=== PATIENT | female | born 2000 | race Caucasian/White ===

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

== ENCOUNTER 2018-02-27 23:10 | Emergency (ER) | payer OTHER, SELFPAY ==
[2018-02-28 00:48] LABS: Absolute Monocytes 0.4 K/uL (0.1-1.3); Absolute Neutrophil 4.7 K/uL (1.8-8.0); Basophils % 0.4 % (0-1.3); Eosinophils % 0.6 % (0-4.4); Hematocrit 38.8 % (36.0-45.0); Lymphocytes % 27.8 % (15.3-44.8); MPV 9.9 fL (7.6-11.3); Monocytes % 5.7 % (3.3-12.3); RBC Red Blood Cell Count 4.46 M/uL (3.86-4.86)
[2018-02-28 01:00] LABS: ALT/SGPT 21 U/L (12-78); AST/SGOT 14 U/L (15-37); Albumin 3.5 g/dL (3.4-5.0); Alkaline Phosphatase 65 U/L (45-117); BUN Blood Urea Nitrogen 12 mg/dL (7-18); Bicarbonate 25 mmol/L (21-32); Bilirubin Direct 0.1 mg/dL (0-0.2); Bilirubin Total 0.4 mg/dL (0.2-1.0); Glucose Level 87 mg/dL (74-106); Lipase 86 U/L (73-393); Potassium 3.5 mmol/L (3.5-5.1); Protein, Total 7.5 g/dL (6.4-8.2); Sodium Level 140 mmol/L (136-145)
[2018-02-28] MEDS ORDERED: DIPHENHYDRAMINE 50 MG/ML VIAL ONE (01:32)
[2018-02-28] MEDS ORDERED: NA CHLORIDE 0.9% 500 ML ONE (01:32)
[2018-02-28] MEDS ORDERED: METOCLOPRAMIDE 10 MG/2mL INJ ONE (01:32)
--- NOTE | 2018-02-28 02:08 | EDPHYS ---
Physician Documentation [facility] Name: Alesha Lopez Age: 17 yrs Sex: Female : 2000 Arrival Date: 02/27/2018 Time: 23:12 Bed 15 Private MD: ED Physician Jeanmarie Chavez HPI: 02/28 01:14 This 17 yrs old Female presents to ER via Ambulatory with complaints of jr8 Abdominal Pain, Headache, Nausea/Vomiting. 01:14 The patient presents with abdominal pain in the upper abdomen. Onset: The jr8 symptoms/episode began/occurred acutely, today. The symptoms do not radiate. Associated signs and symptoms: Pertinent positives: headache, nausea. The symptoms are described as crampy. Modifying factors: The symptoms are alleviated by nothing, the symptoms are aggravated by nothing. Severity of pain: At its worst the pain was moderate in the emergency department the pain has improved mildly. The patient has not experienced similar symptoms in the past. The patient has not recently seen a physician. 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 - Social history:: Smoking status: Patient/guardian denies using tobacco. - Ebola Screening: : No symptoms or risks identified at this time. ROS: 02/28 01:15 Eyes: Negative for injury, pain, redness, and discharge, ENT: Negative for injury, jr8 pain, and discharge, Neck: Negative for injury, pain, and swelling, Cardiovascular: Negative for chest pain, palpitations, and edema, Respiratory: Negative for shortness of breath, cough, wheezing, and pleuritic chest pain, Back: Negative for injury and pain, MS/Extremity: Negative for injury and deformity, Skin: Negative for injury, rash, and discoloration. Abdomen/GI: Positive for abdominal pain, nausea, Negative for vomiting, diarrhea, constipation, abdominal distension. Neuro: Positive for headache, Negative for altered mental status, dizziness, gait disturbance, hearing loss, loss of consciousness, numbness, seizure activity, speech changes, syncope, near syncope, tingling, tinnitus, tremor, visual changes, weakness. Exam: 01:16 Eyes: Pupils equal round and reactive to light, extra-ocular motions intact. Lids and jr8 lashes normal. Conjunctiva and sclera are non-icteric and not injected. Cornea within normal limits. Periorbital areas with no swelling, redness, or edema. ENT: Nares patent. No nasal discharge, no septal abnormalities noted. Tympanic membranes are normal and external auditory canals are clear. Oropharynx with no redness, swelling, or masses, exudates, or evidence of obstruction, uvula midline. Mucous membranes moist. Neck: Trachea midline, no thyromegaly or masses palpated, and no cervical lymphadenopathy. Supple, full range of motion without nuchal rigidity, or vertebral point tenderness. No Meningismus. Cardiovascular: Regular rate and rhythm with a normal S1 and S2. No gallops, murmurs, or rubs. Normal PMI, no JVD. No pulse deficits. Respiratory: Lungs have equal breath sounds bilaterally, clear to auscultation and percussion. No rales, rhonchi or wheezes noted. No increased work of breathing, no retractions or nasal flaring. Back: No spinal tenderness. No costovertebral tenderness. Full range of motion. Skin: Warm, dry with normal turgor. Normal color with no rashes, no lesions, and no evidence of cellulitis. MS/ Extremity: Pulses equal, no cyanosis. Neurovascular intact. Full, normal range of motion. Neuro: Awake and alert, GCS 15, oriented to person, place, time, and situation. Cranial nerves II-XII grossly intact. Motor strength 5/5 in all extremities. Sensory grossly intact. Cerebellar exam normal. Normal gait. :16 Abdomen/GI: Inspection: abdomen appears normal, Bowel sounds: active, all quadrants, Palpation: soft, in all quadrants, mild abdominal tenderness, in the epigastric area, mass, is not appreciated, rebound tenderness, is not appreciated, voluntary guarding, is not appreciated, involuntary guarding, is not appreciated, no appreciated organomegaly, Indicators: McBurney's point is not tender, Hill's sign is negative, Rovsing's sign is negative, Liver: tenderness, is not appreciated. Vital Signs: 02/27 23:26 BP 132 / 87; Pulse 93; Resp 16 S; Temp 99(O); Pulse Ox 99% on R/A; Weight 50.8 kg (R); bb Height 5 ft. 1 in. (154.94 cm) (R); Pain 8/10; 02/28 00:30 BP 99 / 58; Pulse 90; Resp 17; Temp 99.1; Pulse Ox 99% ; Pain 8/10; rr5 01:30 BP 102 / 60; Pulse 90; Resp 17; Pulse Ox 99% ; rr5 02:15 BP 98 / 61; Pulse 85; Resp 19; Pulse Ox 99% ; rr5 02/27 23:26 Body Mass Index 21.16 (50.80 kg, 154.94 cm) bb MDM: 00:13 Patient medically screened. 8 02:06 Data reviewed: vital signs, nurses notes, lab test result(s), and as a result, I will jr8 discharge patient. Data interpreted: Pulse oximetry: on room air is 99 %. Interpretation: normal. Counseling: I had a detailed discussion with the patient and/or guardian regarding: the historical points, exam findings, and any diagnostic results supporting the discharge/admit diagnosis, lab results, the need for outpatient follow up, a family practitioner, to return to the emergency department if symptoms worsen or persist or if there are any questions or concerns that arise at home. Response to treatment: the patient's symptoms have resolved after treatment, patient is well hydrated. Special discussion: Based on the patient's Hx, exam, and Dx evaluation, there is no indication for emergent surgery or inpatient Tx. It is understood by the patient/guardian that if the Sx's persist or worsen they need to return immediately for re-evaluation. 02/28 00:13 Order name: Basic Metabolic Panel; Complete Time: 02/28 00:13 Order name: CBC with Diff; Complete Time: 02/28 00:13 Order name: Creatinine for Radiology; Complete Time: 02/28 00:13 Order name: Hepatic Function; Complete Time: 02/28 00:13 Order name: Lipase; Complete Time: 02/28 01:23 Order name: Urine Dipstick--Ancillary (enter results) mw2 02/28 00:13 Order name: IV Saline Lock; Complete Time: 02/28 00:13 Order name: Labs collected and sent; Complete Time: :02/28 00:13 Order name: Urine Test (obtain specimen); Complete Time: 02/28 00:13 Order name: Urine Dipstick-Ancillary (obtain specimen); Complete Time: 02/28 01:23 Order name: Urine --Ancillary (enter results) mw2 Administered Medications: :25 Drug: NS 0.9% 500 ml Route: IV; Rate: bolus; Site: right forearm; rr5 02:25 Follow up: Response: No adverse reaction; IV Status: Completed infusion; IV Intake: rr5 500ml 01:28 Drug: Reglan 10 mg Route: IVP; Site: right forearm; rr5 02:20 Follow up: Response: No adverse reaction rr5 01:30 Drug: Benadryl 25 mg Route: IVP; Site: right forearm; rr5 02:20 Follow up: Response: No adverse reaction rr5 Disposition: 05:22 Co-signature as Attending Physician, Jeanmarie Chavez MD I agree with the assessment and tw4 plan of care. Disposition: 02/28/18 02:07 Discharged to Home. Impression: Upper abdominal pain, unspecified. - Condition is Stable. - Discharge Instructions: Abdominal Pain, Adult. - Prescriptions for Zofran 4 mg Oral Tablet - take 1 tablet by ORAL route every 12 hours As needed; 20 tablet. - Medication Reconciliation Form, Thank You Letter, Antibiotic Education, Prescription Opioid Use form. - Follow up: Private Physician; When: 2 - 3 days; Reason: Recheck today's complaints, Continuance of care, Re-evaluation by your physician. - Problem is new. - Symptoms have improved. Signatures: Dispatcher [employer] EDMS Araseli Rapp RN RN bb Raleigh Jenkins PA PA jr8 Jeanmarie Chavez MD MD tw4 Carrillo Win RN RN rr5 Corrections: (The following items were deleted from the chart) 02:32 02:07 02/28/2018 02:07 Discharged to Home. Impression: Upper abdominal pain, rr5 unspecified. Condition is Stable. Forms are Medication Reconciliation Form, Thank You Letter, Antibiotic Education, Prescription Opioid Use. Follow up: Private Physician; When: 2 - 3 days; Reason: Recheck today's complaints, Continuance of care, Re-evaluation by your physician. Problem is new. Symptoms have improved. jr8
--- NOTE | 2018-02-28 02:08 | ER ---
Nurse's Notes [facility] Name: Alesha Lopez Age: 17 yrs Sex: Female : 2000 Arrival Date: 02/27/2018 Time: 23:12 Bed 15 Private MD: Diagnosis: Upper abdominal pain, unspecified Presentation: 02/27 23:24 Presenting complaint: Patient states: she is having a migraine with vomiting and bb epigastric pain she has taken 4 ibuprofen but it is not helping. Transition of care: patient was not received from another setting of care. Onset of symptoms was February 27, 2018. Risk Assessment: Do you want to hurt yourself or someone else? Patient reports no desire to harm self or others. Initial Sepsis Screen: Does the patient meet any 2 criteria? No. Patient's initial sepsis screen is negative. Does the patient have a suspected source of infection? No. Patient's initial sepsis screen is negative. Care prior to arrival: None. 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 - Social history:: Smoking status: Patient/guardian denies using tobacco. - Ebola Screening: : No symptoms or risks identified at this time. Screenin:30 Abuse screen: Denies threats or abuse. Denies injuries from another. Nutritional rr5 screening: No deficits noted. Tuberculosis screening: No symptoms or risk factors identified. Fall Risk None identified. Assessment: 23:30 General: Appears in no apparent distress. uncomfortable, Behavior is calm, cooperative, rr5 appropriate for age. 23:30 Pain: Complains of pain in abdomen and head Pain does not radiate. Pain currently is 8 rr5 out of 10 on a pain scale. Quality of pain is described as aching, Pain began gradually, Is intermittent. Neuro: Level of Consciousness is awake, alert, obeys commands, Oriented to person, place, time, situation, Appropriate for age Reports headache. Cardiovascular: Capillary refill < 3 seconds Patient's skin is warm and dry. Respiratory: Airway is patent Respiratory effort is even, unlabored, Respiratory pattern is regular, symmetrical. GI: Bowel sounds present X 4 quads. Abd is soft and non tender X 4 quads. Reports lower abdominal pain, upper abdominal pain, nausea, vomiting. : No signs and/or symptoms were reported regarding the genitourinary system. EENT: No signs and/or symptoms were reported regarding the EENT system. Derm: Skin is intact, Skin temperature is warm. Musculoskeletal: Capillary refill < 3 seconds, Range of motion: intact in all extremities. 02/28 00:30 Reassessment: Patient appears in no apparent distress at this time. No changes from rr5 previously documented assessment. Patient and/or family updated on plan of care and expected duration. Pain level reassessed. 01:20 Reassessment: Patient appears in no apparent distress at this time. Patient and/or rr5 family updated on plan of care and expected duration. Pain level reassessed. asleep comfortably on bed Patient states feeling better. Patient states symptoms have improved. 02:20 Reassessment: Patient appears in no apparent distress at this time. Patient and/or rr5 family updated on plan of care and expected duration. Pain level reassessed. discharge instruction and prescription given and explained without complaints made. Patient states feeling better. Patient states symptoms have improved. Vital Signs: 02/27 23:26 BP 132 / 87; Pulse 93; Resp 16 S; Temp 99(O); Pulse Ox 99% on R/A; Weight 50.8 kg (R); bb Height 5 ft. 1 in. (154.94 cm) (R); Pain 8/10; 02/28 00:30 BP 99 / 58; Pulse 90; Resp 17; Temp 99.1; Pulse Ox 99% ; Pain 8/10; rr5 01:30 BP 102 / 60; Pulse 90; Resp 17; Pulse Ox 99% ; rr5 02:15 BP 98 / 61; Pulse 85; Resp 19; Pulse Ox 99% ; rr5 02/27 23:26 Body Mass Index 21.16 (50.80 kg, 154.94 cm) bb ED Course: 02/27 23:12 Patient arrived in ED. am2 23:25 Triage completed. bb 23:26 Arm band placed on Patient placed in an exam room, on a stretcher, on pulse oximetry. bb Family accompanied patient. 23:30 Patient has correct armband on for positive identification. Placed in gown. Bed in low rr5 position. Call light in reach. Side rails up X 1. Pulse ox on. NIBP on. 23:35 Carrillo Win, RN is Primary Nurse. rr5 02/28 00:12 Raleigh Jenkins PA is PHCP. jr8 00:12 Jeanmarie Chavez MD is Attending Physician. jr8 00:30 Inserted saline lock: 20 gauge in right forearm, using aseptic technique. Blood rr5 collected. 02:20 No provider procedures requiring assistance completed. IV discontinued, intact, rr5 bleeding controlled, No redness/swelling at site. Pressure dressing applied. Administered Medications: 01:25 Drug: NS 0.9% 500 ml Route: IV; Rate: bolus; Site: right forearm; rr5 02:25 Follow up: Response: No adverse reaction; IV Status: Completed infusion; IV Intake: rr5 500ml 01:28 Drug: Reglan 10 mg Route: IVP; Site: right forearm; rr5 02:20 Follow up: Response: No adverse reaction rr5 01:30 Drug: Benadryl 25 mg Route: IVP; Site: right forearm; rr5 02:20 Follow up: Response: No adverse reaction rr5 Intake: 02:25 IV: 500ml; Total: 500ml. rr5 Outcome: 02:07 Discharge ordered by . jr8 02:30 Discharged to home ambulatory, with family. rr5 02:30 Condition: stable 02:30 Discharge instructions given to patient, family, Instructed on discharge instructions, follow up and referral plans. medication usage, Demonstrated understanding of instructions, follow-up care, medications, Prescriptions given X 1. 02:32 Patient left the ED. rr5 Signatures: Araseli Rapp RN RN bb Raleigh Jenkins PA PA jr8 Haleigh Caputo 2 Carrillo Win, RN RN rr5 Corrections: (The following items were deleted from the chart) 02:40 02:15 BP 105 / 61; Pulse 85bpm; Resp 19bpm; Pulse Ox 99%; rr5 rr5
[2018-02-28 03:09] LABS: Urine Blood TRACE (NEG); Urine Glucose NEGATIVE (NEG); Urine Protein 1+ (NEG); Urine Specific Gravity >1.030 (1.005-1.030)
== END 2018-02-28 02:32 | disposition home or self-care (01) ==
LOC: ER 23:10
DX: R10.10 Upper abdominal pain, unspecified (principal)
CPT/HCPCS: 36415; 80048; 80076; 81003; 81025; 83690; 85025; 96361; 96374; 96375; 99284; J2765

== ENCOUNTER 2018-03-03 22:20 | Emergency (ER) | payer SELFPAY ==
[2018-03-03] MEDS ORDERED: KETOROLAC 30 MG/ML INJ ONE (23:14)
[2018-03-03] MEDS ORDERED: ONDANSETRON 4 MG/2 ML VIAL ONE (23:14)
[2018-03-03] MEDS ORDERED: NA CHLORIDE 0.9% 1,000 ML ONE (23:15)
[2018-03-03 23:30] LABS: Absolute Lymphocytes (CBC) 2.4 K/uL (0.7-4.9); Absolute Monocytes 0.4 K/uL (0.1-1.3); Absolute Neutrophil 2.7 K/uL (1.8-8.0); Basophils % 0.6 % (0-1.3); Eosinophils % 1.8 % (0-4.4); Hematocrit 40.1 % (36.0-45.0); Lymphocytes % 42.5 % (15.3-44.8); MPV 9.7 fL (7.6-11.3); Monocytes % 7.4 % (3.3-12.3)
[2018-03-03 23:40] LABS: Urine Blood TRACE (NEG); Urine Glucose NEGATIVE (NEG); Urine Protein NEGATIVE (NEG)
[2018-03-03 23:50] LABS: ALT/SGPT 18 U/L (12-78); AST/SGOT 10 U/L (15-37); Albumin 3.5 g/dL (3.4-5.0); Alkaline Phosphatase 68 U/L (45-117); BUN Blood Urea Nitrogen 10 mg/dL (7-18); Bicarbonate 25 mmol/L (21-32); Bilirubin Direct 0.1 mg/dL (0-0.2); Bilirubin Total 0.4 mg/dL (0.2-1.0); Glucose Level 87 mg/dL (74-106); Lipase 256 U/L (73-393); Potassium 3.5 mmol/L (3.5-5.1); Protein, Total 7.4 g/dL (6.4-8.2); Sodium Level 140 mmol/L (136-145)
--- NOTE | 2018-03-04 00:02 | ER ---
Nurse's Notes [facility] Name: Alesha Lopez Age: 17 yrs Sex: Female : 2000 Arrival Date: 03/03/2018 Time: 22:23 Bed 11 Private MD: Diagnosis: Upper abdominal pain, unspecified Presentation: 03/03 22:46 Presenting complaint: Patient states: she is having abdominal pain, nausea and vomiting bb x 4 days, denies fever, diarrhea or urinary symptoms pt does have hx of kidney stones with stent placement. Transition of care: patient was not received from another setting of care. Onset of symptoms was February 27, 2018. Risk Assessment: Do you want to hurt yourself or someone else? Patient reports no desire to harm self or others. Initial Sepsis Screen: Does the patient meet any 2 criteria? No. Patient's initial sepsis screen is negative. Does the patient have a suspected source of infection? No. Patient's initial sepsis screen is negative. Care prior to arrival: None. 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 - Social history:: Smoking status: Patient/guardian denies using tobacco. - Ebola Screening: : No symptoms or risks identified at this time. Screenin:28 Abuse screen: None noted. Nutritional screening: No deficits noted. Tuberculosis jl3 screening: No symptoms or risk factors identified. Fall Risk None identified. Assessment: 23:25 General: Appears uncomfortable, slender, well groomed, Behavior is calm, cooperative. jl3 General: Pt c/o abd pain 8/10 for about 1 week. Presented to this ER Tuesday, states pain/nausea returned. C/O N/V, denies diarrhea. NKA, no home meds. Pain: Complains of pain in right upper quadrant, left upper quadrant, right lower quadrant and left lower quadrant Pain currently is 8 out of 10 on a pain scale. Quality of pain is described as aching, crampy, sharp, Pain began 2-3 days ago. Neuro: No deficits noted. Cardiovascular: No deficits noted. Respiratory: No deficits noted. GI: Bowel sounds present X 4 quads. Abdomen is tender to palpation in right upper quadrant and left upper quadrant. : No deficits noted. EENT: No deficits noted. Derm: No deficits noted. Musculoskeletal: No deficits noted. Vital Signs: 22:48 BP 136 / 87; Pulse 64; Resp 16 S; Temp 97(O); Pulse Ox 99% on R/A; Weight 50.8 kg (R); bb Height 5 ft. 1 in. (154.94 cm) (R); Pain 8/10; 22:48 Body Mass Index 21.16 (50.80 kg, 154.94 cm) bb ED Course: 22:23 Patient arrived in ED. ds1 22:27 [facility]C [facility] kb 22:27 iRck Aden MD is Attending Physician. kb 22:48 Triage completed. bb 22:48 Arm band placed on Patient placed in an internal wait recliner. Family accompanied bb patient. 23:00 Initial lab(s) drawn, by me, sent to lab. Urine collected: clean catch specimen, clear, jp3 levi colored, Amount Voided: 30mL. Inserted saline lock: 22 gauge in right antecubital area, using aseptic technique. Blood collected. 23:02 Gurwinder Velasquez, RN is Primary Nurse. jl3 23:29 Patient has correct armband on for positive identification. jl3 03/04 00:15 No provider procedures requiring assistance completed. IV discontinued, intact, jl3 bleeding controlled, No redness/swelling at site. Pressure dressing applied. Administered Medications: 03/03 23:23 Drug: Zofran 4 mg Route: IVP; Site: right antecubital; jl3 23:38 Follow up: Response: No adverse reaction; Nausea is decreased jl3 23:23 Drug: TORadol 30 mg Route: IVP; Site: right antecubital; jl3 23:37 Follow up: Response: No adverse reaction; Pain is decreased jl3 23:24 Drug: NS 0.9% 1000 ml Route: IV; Rate: 1000 ml; Site: right antecubital; jl3 03/04 00:30 Follow up: Response: No adverse reaction; IV Intake: 1000ml jl3 00:30 Follow up: Response: No adverse reaction jl3 Intake: 00:30 IV: 1000ml; Total: 1000ml. jl3 Outcome: 00:01 Discharge ordered by MD. packer 00:29 Discharged to home ambulatory, with family. jl3 00:29 Condition: stable 00:29 Discharge instructions given to patient, family, Prescriptions given X 2. 00:31 Patient left the ED. jl3 Signatures: Elis Matthews, KAYLEIGH-C PSYCHIATRIC TECHNICIAN ASSISTANT-Jacinta Jhaveri ds1 Araseli Rapp, RN RN bb Gurwinder Velasquez RN RN jl3 Leonard Turcios jp3
--- NOTE | 2018-03-04 00:03 | EDPHYS ---
Physician Documentation [facility] Name: Alesha Lopez Age: 17 yrs Sex: Female : 2000 Arrival Date: 03/03/2018 Time: 22:23 Bed 11 Private MD: ED Physician Rick Aden HPI: 03/04 00:00 This 17 yrs old Female presents to ER via Ambulatory with complaints of kb Abdominal Pain. 00:00 The patient presents with abdominal pain in the upper abdomen. Onset: The kb symptoms/episode began/occurred 4 day(s) ago. The symptoms do not radiate. Associated signs and symptoms: Pertinent positives: nausea and vomiting, Pertinent negatives: anorexia, blood in stools, chest pain, constipation, diarrhea, dysuria, fever, headache, hematuria, palpitations, shortness of breath, vaginal discharge, vomiting blood. The symptoms are described as achy, constant. Modifying factors: The symptoms are alleviated by nothing, the symptoms are aggravated by nothing. Severity of pain: At its worst the pain was moderate in the emergency department the pain is unchanged. The patient has not experienced similar symptoms in the past. The patient has been recently seen at the [facility] Emergency Department, this week, for similar complaints labs were performed. SPECIAL SERVICES DIRECTOR: 03/03 22:48 LMP 01/27/2018 bb Historical: - Allergies: 22:48 No Known Allergies; bb - Home Meds: 22:48 None [Active]; bb - PMHx: 22:48 Kidney stones; bb - PSHx: 22:48 Kidney stents; bb - Immunization history:: Adult Immunizations up to date. - Social history:: Smoking status: Patient/guardian denies using tobacco. - Ebola Screening: : No symptoms or risks identified at this time. ROS: 03/04 00:00 Constitutional: Negative for fever, chills, and weight loss, Cardiovascular: Negative kb for chest pain, palpitations, and edema, Respiratory: Negative for shortness of breath, cough, wheezing, and pleuritic chest pain, Back: Negative for injury and pain, MS/Extremity: Negative for injury and deformity, Skin: Negative for injury, rash, and discoloration, Neuro: Negative for headache, weakness, numbness, tingling, and seizure. Abdomen/GI: Positive for abdominal pain, nausea and vomiting, Negative for diarrhea, constipation, abdominal cramps, abdominal distension, anorexia. Exam: 00:00 Constitutional: This is a well developed, well nourished patient who is awake, alert, kb and in no acute distress. Head/Face: Normocephalic, atraumatic. ENT: Nares patent. No nasal discharge, no septal abnormalities noted. Tympanic membranes are normal and external auditory canals are clear. Oropharynx with no redness, swelling, or masses, exudates, or evidence of obstruction, uvula midline. Mucous membranes moist. Neck: Trachea midline, no thyromegaly or masses palpated, and no cervical lymphadenopathy. Supple, full range of motion without nuchal rigidity, or vertebral point tenderness. No Meningismus. Chest/axilla: Normal chest wall appearance and motion. Nontender with no deformity. No lesions are appreciated. Cardiovascular: Regular rate and rhythm with a normal S1 and S2. No gallops, murmurs, or rubs. Normal PMI, no JVD. No pulse deficits. Respiratory: Lungs have equal breath sounds bilaterally, clear to auscultation and percussion. No rales, rhonchi or wheezes noted. No increased work of breathing, no retractions or nasal flaring. Skin: Warm, dry with normal turgor. Normal color with no rashes, no lesions, and no evidence of cellulitis. MS/ Extremity: Pulses equal, no cyanosis. Neurovascular intact. Full, normal range of motion. Neuro: Awake and alert, GCS 15, oriented to person, place, time, and situation. Cranial nerves II-XII grossly intact. Motor strength 5/5 in all extremities. Sensory grossly intact. Cerebellar exam normal. Normal gait. 00:00 Abdomen/GI: Inspection: abdomen appears normal, Bowel sounds: normal, in all quadrants, Palpation: soft, in all quadrants, mild abdominal tenderness, in the right upper quadrant and left upper quadrant. Vital Signs: 03/03 22:48 BP 136 / 87; Pulse 64; Resp 16 S; Temp 97(O); Pulse Ox 99% on R/A; Weight 50.8 kg (R); bb Height 5 ft. 1 in. (154.94 cm) (R); Pain 8/10; 22:48 Body Mass Index 21.16 (50.80 kg, 154.94 cm) bb MDM: 22:34 Patient medically screened. kb 01/19 00:00 Data reviewed: vital signs, nurses notes. Data interpreted: Pulse oximetry: on room air kb is 99 %. Interpretation: normal. Counseling: I had a detailed discussion with the patient and/or guardian regarding: the historical points, exam findings, and any diagnostic results supporting the discharge/admit diagnosis, lab results, the need for outpatient follow up, a family practitioner, to return to the emergency department if symptoms worsen or persist or if there are any questions or concerns that arise at home. 03/03 22:45 Order name: Basic Metabolic Panel; Complete Time: 23:52 kb 03/03 22:45 Order name: CBC with Diff; Complete Time: 23:52 kb 03/03 22:45 Order name: Hepatic Function; Complete Time: 23:52 kb 03/03 22:45 Order name: Lipase; Complete Time: 23:52 kb 03/03 23:31 Order name: Urine Dipstick--Ancillary (enter results); Complete Time: 23:52 mw2 03/03 23:31 Order name: Urine --Ancillary (enter results); Complete Time: 23:52 mw2 03/03 22:45 Order name: IV Saline Lock; Complete Time: 23:24 kb 03/03 22:45 Order name: Labs collected and sent; Complete Time: 23:24 kb Administered Medications: 03/03 23:23 Drug: Zofran 4 mg Route: IVP; Site: right antecubital; jl3 23:38 Follow up: Response: No adverse reaction; Nausea is decreased jl3 23:23 Drug: TORadol 30 mg Route: IVP; Site: right antecubital; jl3 23:37 Follow up: Response: No adverse reaction; Pain is decreased jl3 23:24 Drug: NS 0.9% 1000 ml Route: IV; Rate: 1000 ml; Site: right antecubital; jl3 03/04 00:30 Follow up: Response: No adverse reaction; IV Intake: 1000ml jl3 00:30 Follow up: Response: No adverse reaction jl3 Disposition: 03/04/18 00:01 Discharged to Home. Impression: Upper abdominal pain, unspecified. - Condition is Stable. - Discharge Instructions: Abdominal Pain, Adult, [id number]. - Prescriptions for Bentyl 20 mg Oral Tablet - take 1 tablet by ORAL route every 6 hours As needed; 20 tablet. Zofran 4 mg Oral Tablet - take 1 tablet by ORAL route every 6 hours As needed; 20 tablet. - Medication Reconciliation Form, Thank You Letter, Antibiotic Education, Prescription Opioid Use form. - Follow up: Emergency Department; When: As needed; Reason: Worsening of condition. Follow up: Private Physician; When: 2 - 3 days; Reason: Recheck today's complaints, Continuance of care, Re-evaluation by your physician. Addendum: 03/11/2018 03:26 Co-signature as Attending Physician, Rick Aden MD. g s Signatures: Dispatcher [employer] EDMS Elis Matthews, ASSISTANT PLANT CONTROLLER-C ASSISTANT PLANT CONTROLLER-Tomib Araseli Rapp, RN RN bb Gurwinder Velasquez RN RN jl3 Rick Aden MD MD Corrections: (The following items were deleted from the chart) 03/04 00:31 00:01 03/04/2018 00:01 Discharged to Home. Impression: Upper abdominal pain, jl3 unspecified. Condition is Stable. Forms are Medication Reconciliation Form, Thank You Letter, Antibiotic Education, Prescription Opioid Use. Follow up: Emergency Department; When: As needed; Reason: Worsening of condition. Follow up: Private Physician; When: 2 - 3 days; Reason: Recheck today's complaints, Continuance of care, Re-evaluation by your physician. kb
== END 2018-03-04 00:31 | disposition home or self-care (01) ==
LOC: ER 22:20
DX: R10.10 Upper abdominal pain, unspecified (principal)
CPT/HCPCS: 36415; 80048; 80076; 81003; 81025; 83690; 85025; J2405; J7030